=== PATIENT | male | born 1995 | race Caucasian/White ===

== ENCOUNTER 2025-06-02 12:56 | Day surgery (SDC) | payer OTHER ==
[2025-06-02] MEDS ORDERED: PROPOFOL 20 ML ONE ×2 (12:59→16:28)
[2025-06-02] MEDS ORDERED: Bupivacaine/Epinephrine 0.25% 30 ML VIAL ONE (13:01)
[2025-06-02] MEDS ORDERED: Ondansetron PF 4 MG/2 ML Vial ONE (17:14)
[2025-06-02] MEDS ORDERED: HYDROcodone/Acetaminophen 5/325 mg Tablet ONE (18:04)
== END 2025-06-02 18:50 | disposition home or self-care (01) ==
LOC: CSHSDC 12:56
PROVIDERS: ATTEND Surgery
PROC: 0DTJ4ZZ Resection of Appendix, Percutaneous Endoscopic Approach (ICD-10-PCS; principal; 2025-06-02)
DX: K35.80 Unspecified acute appendicitis (principal); I10 Essential (primary) hypertension; F17.290 Nicotine dependence, other tobacco product, uncomplicated; Z88.1 Allergy status to other antibiotic agents
CPT/HCPCS: 88304; A4649; J2405; J2704; J3010